=== PATIENT | male | born 1980 | race Hispanic/Latino ===

== ENCOUNTER 2019-01-14 11:03 | Emergency (ER) | payer SELFPAY ==
[2019-01-14] MEDS ORDERED: Lidocaine 1% w/Epinephrine 1:100K 20 ML VIAL ONE (12:17)
[2019-01-14] MEDS ORDERED: Bacitracin 1 PK ONE (13:09)
== END 2019-01-14 13:25 | disposition home or self-care (01) ==
LOC: ERS 11:03
DX: S71.111A Laceration without foreign body, right thigh, initial encounter (principal); W27.0XXA Contact with workbench tool, initial encounter
CPT/HCPCS: 12004; J2001

== ENCOUNTER 2019-08-08 07:50 | Emergency (ER) | payer SELFPAY ==
[2019-08-08] MEDS ORDERED: Ibuprofen 800 MG TAB ONE (08:44)
[2019-08-08] MEDS ORDERED: Ondansetron ODT 8 MG TAB ONE (08:44)
[2019-08-08] MEDS ORDERED: Acetaminophen 500 MG TAB ONE ×2 (08:44→08:46)
== END 2019-08-08 09:06 | disposition home or self-care (01) ==
LOC: ERS 07:50
DX: J11.1 Influenza due to unidentified influenza virus with other respiratory manifestations (principal); I10 Essential (primary) hypertension
CPT/HCPCS: 99283